=== PATIENT | female | born 1960 | race Caucasian/White ===

== ENCOUNTER 2016-07-14 07:28 | Day surgery (SDC) | payer BC ==
--- NOTE | ~2016-07-14 | EGD ---
EGD REPORT [facility] [address] [place]. [address] NAME: CATHERINE SHORT : [birth year] STATUS : REG [facility] [place] PAT#: [id number] AGE: 55 ADM/REG DATE : 07/14/16 MR#: [id number] REPORT SERV DATE: 07/14/16 DICTATED BY: PATRICIA BAER DATE: 07/14/16 REPORT STATUS : Draft TRANSCRIBED BY: [facility] DATE: 07/14/16 [facility] Patient Name: Catherine Short Date of : 1960 Attending MD: PATRICIA BAER MD Procedure Date No Time: 07/14/2016 Procedure: Colonoscopy Indications: Screening for colorectal malignant neoplasm, Incidental abdominal pain noted, Incidental constipation noted Referring MD: RITO BUSH Medicines: Propofol per Anesthesia Complications: No immediate complications. Estimated blood loss: None. Procedure: Pre-Anesthesia Assessment: - After reviewing the risks and benefits, the patient was deemed in satisfactory condition to undergo the procedure. - Prior to the procedure, a History and Physical was performed, and patient medications and allergies were reviewed. The patient's tolerance of previous anesthesia was also reviewed. The risks and benefits of the procedure and the sedation options and risks were discussed with the patient. All questions were answered, and informed consent was obtained. Prior Anticoagulants: The patient has taken no previous anticoagulant or antiplatelet agents. ASA Grade Assessment: II - A patient with mild systemic disease. After reviewing the risks and benefits, the patient was deemed in satisfactory condition to undergo the procedure. After I obtained informed consent, the scope was passed under direct vision. Throughout the procedure, the patient's blood pressure, pulse, and oxygen saturations were monitored continuously. The CF [id number] was introduced through the anus and advanced to the terminal ileum, with identification of the appendiceal orifice and IC valve. The colonoscopy was performed without difficulty. The ileocecal valve, appendiceal orifice and terminal ileum were photographed. The patient tolerated the procedure well. The quality of the bowel preparation was adequate. The bowel preparation used was a 2 day prep with polyethylene glycol (PEG) and magnesium citrate. Scope withdrawal time was greater than 7 minutes. Findings: The perianal and digital rectal examinations were normal. Pertinent EGD REPORT [address] [place]. [address] NAME: CATHERINE SHORT : [birth year] STATUS : REG [facility]#: [id number] AGE: 55 ADM/REG DATE : 07/14/16 MR#: [id number] REPORT SERV DATE: 07/14/16 DICTATED BY: PATRICIA BAER DATE: 07/14/16 REPORT STATUS : Draft TRANSCRIBED BY: [employer] DATE: 07/14/16 negatives include normal sphincter tone. The terminal ileum appeared normal. Non-bleeding internal hemorrhoids were found during retroflexion and were small and Grade I (internal hemorrhoids that do not prolapse). A few small-mouthed diverticula were found in the sigmoid colon. The exam was otherwise without abnormality. Impression: - The examined portion of the ileum was normal. - Non-bleeding internal hemorrhoids. - Mild diverticulosis in the sigmoid colon. - The examination was otherwise normal. - Irritable bowel syndrome with constipation. Recommendation: - Discharge patient to home (ambulatory). - High fiber diet indefinitely. - Continue present medications including Amitiza 24 mcg twice daily. - Begin Align probiotic daily. - TSH today. - Collect Hemoccults on three spontaneously passed stools annually. - Repeat colonoscopy in 10 years for screening purposes. - Return to GI clinic PRN. - Patient has a contact number available for emergencies. The signs and symptoms of potential delayed complications were discussed with the patient. Return to normal activities tomorrow. Written discharge instructions were provided to the patient. Procedure Code(s): --- Professional --- G0121, Colorectal cancer screening; colonoscopy on individual not meeting criteria for high risk Diagnosis Code(s): --- Professional --- K64.0, First degree hemorrhoids K58.9, Irritable bowel syndrome without diarrhea K57.30, Diverticulosis of large intestine without perforation or abscess without bleeding Z12.11, Encounter for screening for malignant neoplasm of colon CPT copyright 2013 [employer]. All rights reserved. The codes documented in this report are preliminary and upon picture framer review may be revised to meet current compliance requirements. EGD REPORT [facility] [address] [address] NAME: CATHERINE SHORT : [birth year] STATUS : REG [facility] [place] PAT#: [id number] AGE: 55 ADM/REG DATE : 07/14/16 MR#: [id number] REPORT SERV DATE: 07/14/16 DICTATED BY: PATRICIA BAER. DATE: 07/14/16 REPORT STATUS : Draft TRANSCRIBED BY: [employer] DATE: 07/14/16 PATRICIA BAER MD 07/14/2016 9:29 AM This report has been signed electronically. Number of Addenda: 0 Note Initiated On: 07/14/2016 8:39 AM Scope Withdrawal Time 0 hours 8 minutes 7 seconds [id number] [id number]
--- NOTE | ~2016-07-14 | EGD ---
EGD REPORT [facility] [address] [address] NAME: CATHERINE SHORT : [birth year] STATUS : REG [facility] [place] PAT#: [id number] AGE: 55 ADM/REG DATE : 07/14/16 MR#: [id number] REPORT SERV DATE: 07/14/16 DICTATED BY: PATRICIA BAER DATE: 07/14/16 REPORT STATUS : Draft TRANSCRIBED BY: [facility] DATE: 07/14/16 Endoscopy Center Patient Name: Catherine Short Date of : 1960 Attending MD: PATRICIA BAER MD Procedure Date No Time: 07/14/2016 Procedure: Upper GI endoscopy Indications: Abdominal pain in the right upper quadrant, S/P GBX with negative MRCP Referring MD: RITO BUSH Medicines: Propofol per Anesthesia Complications: No immediate complications. Estimated blood loss: None. Procedure: Pre-Anesthesia Assessment: - After reviewing the risks and benefits, the patient was deemed in satisfactory condition to undergo the procedure. - Prior to the procedure, a History and Physical was performed, and patient medications and allergies were reviewed. The patient's tolerance of previous anesthesia was also reviewed. The risks and benefits of the procedure and the sedation options and risks were discussed with the patient. All questions were answered, and informed consent was obtained. Prior Anticoagulants: The patient has taken no previous anticoagulant or antiplatelet agents. ASA Grade Assessment: II - A patient with mild systemic disease. After reviewing the risks and benefits, the patient was deemed in satisfactory condition to undergo the procedure. After obtaining informed consent, the endoscope was passed under direct vision. Throughout the procedure, the patient's blood pressure, pulse, and oxygen saturations were monitored continuously. The GIF [id number] was introduced through the mouth, and advanced to the jejunum. The upper GI endoscopy was accomplished without difficulty. The patient tolerated the procedure well. Findings: The examined esophagus was normal. The entire examined stomach and gastroesophageal junction (on retroflexion) were normal. The examined duodenum was normal. Biopsies were taken with a cold forceps for histology. Estimated blood loss: none. Impression: - Normal esophagus. EGD REPORT [address] [address] NAME: CATHERINE SHORT : [birth year] STATUS : REG [facility]#: [id number] AGE: 55 ADM/REG DATE : 07/14/16 MR#: [id number] REPORT SERV DATE: 07/14/16 DICTATED BY: PATRICIA BAER DATE: 07/14/16 REPORT STATUS : Draft TRANSCRIBED BY: [employer] DATE: 07/14/16 - Normal stomach and gastroesophageal junction. - Normal examined duodenum. Biopsied. Recommendation: - Discharge patient to home (ambulatory). - Return to previous diet. - Continue present medications. - Await pathology results. - Perform a colonoscopy today. - Patient has a contact number available for emergencies. The signs and symptoms of potential delayed complications were discussed with the patient. Return to normal activities tomorrow. Written discharge instructions were provided to the patient. Procedure Code(s): --- Professional --- 34100, Esophagogastroduodenoscopy, flexible, transoral; with biopsy, single or multiple Diagnosis Code(s): --- Professional --- R10.11, Right upper quadrant pain CPT copyright 2013 [employer]. All rights reserved. The codes documented in this report are preliminary and upon dumper bailer operator review may be revised to meet current compliance requirements. PATRICIA BAER MD 07/14/2016 9:07 AM This report has been signed electronically. Number of Addenda: 0 Note Initiated On: 07/14/2016 8:39 AM Scope Withdrawal Time 0 hours 0 minutes 0 seconds [id number] [place] [address]
[~2016-07-14 07:28] MED LIST: AMITIZA24 PO; EFFEXOR XR150 MG PO; FISH OIL; LEXAPRO10 PO; PCET PO; PR25 PO; SYN1 PO
== END 2016-07-14 23:59 | disposition home or self-care (01) ==
LOC: DMU 07:28
PROVIDERS: Internal Medicine Gastroenterology
PROC: 0DJD8ZZ Inspection of Lower Intestinal Tract, Via Natural or Artificial Opening Endoscopic (ICD-10-PCS; principal; 2016-07-14 09:00)
PROC: 0DB98ZX Excision of Duodenum, Via Natural or Artificial Opening Endoscopic, Diagnostic (ICD-10-PCS; 2016-07-14 09:00)
DX: Z12.11 Encounter for screening for malignant neoplasm of colon (principal); K64.0 First degree hemorrhoids; K57.30 Diverticulosis of large intestine without perforation or abscess without bleeding; E03.9 Hypothyroidism, unspecified; H91.90 Unspecified hearing loss, unspecified ear; F41.9 Anxiety disorder, unspecified; Z88.2 Allergy status to sulfonamides; Z90.89 Acquired absence of other organs; Z90.49 Acquired absence of other specified parts of digestive tract; Z79.899 Other long term (current) drug therapy; Z98.890 Other specified postprocedural states; Z90.710 Acquired absence of both cervix and uterus
CPT/HCPCS: 84443; 88305; J2405